=== PATIENT | female | born 1990 | race Caucasian/White ===

== ENCOUNTER 2017-05-27 22:06 | Emergency (ER) | payer BC ==
[~2017-05-27] VITALS: Ht 154.9 cm; Wt 68.4 kg
[~2017-05-27 22:06] MED LIST: AMOX500C PO; CORTI10A AU; HYDR-3533 PO
[2017-05-27 22:21] VITALS: BP 112/69; PULSE 80; RESP 16; TEMP 98.4; O2SAT 99
[2017-05-27] MEDS ORDERED: HYDR2.5%T RECTAL (22:38)
--- NOTE | 2017-05-27 22:42 | PD ---
HPI Chief Complaint: GI Complaint Time Seen by Provider: 22:28 Travel History International Travel<30 days: No Contact w/Intl Traveler<30days: No Traveled to known affect area: No History of Present Illness HPI This 26-year-old female is complaining of rectal bleeding and pain. She says the symptoms of a going on throughout her life but it got worse the last few days. She believes she's had hemorrhoids all her life. She didn't go to a surgeon once and is considering surgery but has never had it done. She does not get constipated. PFSH Past Medical History Diminished Hearing: No : 1 Social History Alcohol Use: Yes ("couple times per week") Tobacco Use: No Substance Use: No Allergies-Medications (Allergen,Severity, Reaction): Coded Allergies: No Known Allergies (Verified , 05/27/17) Reported Meds & Prescriptions Reported Meds & Active Scripts Active Review of Systems General / Constitutional: No: Fever, Chills Eyes: No: Diploplia HENT: No: Headaches Cardiovascular: No: Chest Pain or Discomfort Respiratory: No: Cough, Shortness of Breath Gastrointestinal: No: Nausea, Vomiting, Diarrhea, Abdominal Pain Genitourinary: No: Urgency, Frequency Musculoskeletal: No: Myalgias Physical Exam Narrative GENERAL: Well-developed female SKIN: Focused skin assessment warm/dry. HEAD: Atraumatic. Normocephalic. EYES: Pupils equal and round. No scleral icterus. No injection or drainage. ENT: No nasal bleeding or discharge. Mucous membranes pink and moist. NECK: Trachea midline. No JVD. CARDIOVASCULAR: Regular rate and rhythm. No murmur appreciated. RESPIRATORY: No accessory muscle use. Clear to auscultation. Breath sounds equal bilaterally. GASTROINTESTINAL: Abdomen soft, non-tender, nondistended. Hepatic and splenic margins not palpable. On inspecting the anal area there is an external hemorrhoid which is not thrombosed. I was going to do a digital exam and the patient asked that I not do that. MUSCULOSKELETAL: No obvious deformities. No clubbing. No cyanosis. No edema. NEUROLOGICAL: Awake and alert. No obvious cranial nerve deficits. Motor grossly within normal limits. Normal speech. PSYCHIATRIC: Appropriate mood and affect; insight and judgment normal. Data Data Last Documented VS Vital Signs Date Time Temp Pulse Resp B/P Pulse Ox O2 Delivery O2 Flow Rate FiO2 05/27/17 22:21 98.4 80 16 112/69 99 Orders Oxycodone-Acetamin 5-325 Mg (Percocet (05/27/17 22:45) MDM Medical Decision Making Medical Screen Exam Complete: Yes Emergency Medical Condition: Yes Medical Record Reviewed: Yes Differential Diagnosis Differential includes hemorrhoid, anal fissure, Narrative Course Patient asked that I not do a digital exam so I don't know exactly what the issue is but symptoms are certainly consistent with hemorrhoid. I will prescribe Anusol Dose of pain medication now. She says this is been going on all her life and I recommended she follow up with colorectal Diagnosis Primary Impression: Hemorrhoid Qualified Code: K64.9 - Hemorrhoids, unspecified hemorrhoid type Additional Instructions: Follow up with colorectal surgery Scripts Hydrocortisone Rectal (Anusol-Hc Rectal)2.5% Cream1 Applic RECTAL BID #[id number] GM Ref 0 Prov:Bulmaro Hernandez MD 05/27/17 Disposition: 01 DISCHARGE HOME Condition: Stable Bulmaro Hernandez MD May 27, 2017 22:42
[2017-05-27 22:43] VITALS: BP 108/71; PULSE 86; RESP 18; TEMP 98.4; O2SAT 99
[2017-05-27] MEDS ORDERED: oxyCODONE/ACETAMINOPHEN 5 MG/325 MG TAB PO ONE (22:45)
[2017-05-27 22:46] VITALS: BP 108/71; PULSE 86; RESP 18; O2SAT 99
== END 2017-05-27 23:45 | disposition home or self-care (01) ==
LOC: PHED 22:06
DX: K64.9 Unspecified hemorrhoids (principal)
CPT/HCPCS: 99283